=== PATIENT | female | born 2000 | race Caucasian/White ===

== ENCOUNTER → 2024-10-13 09:37 | Outpatient (REF) | payer OTHER, SELFPAY | LOC: MRI 09:37 | PROVIDERS: ATTENDING PHYSICIAN Student in an Organized Health Care Education/Training Program | DX: M25.531 Pain in right wrist (principal) | CPT/HCPCS: 73221 ==

== ENCOUNTER → 2024-11-29 07:56 | Outpatient (REF) | payer OTHER, SELFPAY | LOC: RAD 07:56 | PROVIDERS: ATTENDING PHYSICIAN Nurse Practitioner Family; FAMILY PHYSICIAN Internal Medicine | DX: M25.551 Pain in right hip (principal) | CPT/HCPCS: 73502 ==

== ENCOUNTER → 2025-03-28 11:10 | Outpatient (REF) | payer OTHER, SELFPAY | LOC: MRI 3T 11:10 | PROVIDERS: ATTENDING PHYSICIAN Orthopaedic Surgery; FAMILY PHYSICIAN Internal Medicine | DX: M54.50 Low back pain, unspecified (principal); M25.551 Pain in right hip | CPT/HCPCS: 72148; 73721 ==